=== PATIENT | female | born 1985 | race Caucasian/White ===

== ENCOUNTER 2025-04-01 15:41 | Emergency (ER) | payer MEDICAID, SELFPAY ==
[2025-04-01 15:45] VITALS: BP 155/77; PULSE 51; RESP 20; TEMP 37.1; O2SAT 99; BMI 16.9
--- NOTE | 2025-04-01 15:47 | ED_ITS ---
HPI - General Adult General Chief complaint: General Medical Stated complaint: Something weird going on with her blood? Related Data Allergies Allergy/AdvReac Type Severity Reaction Status Date / Time No Known Allergies Allergy Verified 04/01/25 15:46 [facility] Social History Social History Advance Directives: No Advance Directives Information Provided: No Physical Exam ED Vital Signs: BMI result Body Mass Index 16.9 Course Course Course Narrative: This is a rapid medical exam performed by Enmanuel Chamorro NP: Additional HPI, ROS, PE not included below will be deferred to primary provider. Patient is a 39y/o F presenting with complaint of heavy vaginal bleeding with clots. Also reports she is bleeding black. Reports abnormal bleeding from injection sites. Last used this morning. Denies chest pain or dyspnea. Plan: labs including cultures Patient left the emergency department before myself or any of the other clinicians could review or explain physical exam findings, test results, need or lack there of for additional testing, treatment options, or a treatment plan. Medical Decision Making Lab Data 04/01/25 16:44 04/01/25 16:44 Labs: Lab Results 04/01/25 Range/Units 16:44 WBC 6.4 (4.8-10.8) X10*3/uL RBC 4.88 (4.20-5.50) X10*6/uL Hgb 14.6 (12.0-16.0) g/dl Hct 44.8 (37.0-47.0) % MCV 91.8 (80.0-98.0) fL MCH 29.9 (27.0-33.0) pg MCHC 32.6 (31.0-35.0) g/dl RDW 13.2 (11.0-16.0) % Plt Count 26 L (160-400) X10*3/uL MPV 9.8 (9.4-12.3) fL Immature Gran % (Auto) 0.2 (0.0-0.4) % Neut % (Auto) 59.3 (45-73) % Lymph % (Auto) 31.6 (20-40) % [place] % (Auto) 6.7 (2-11) % Eos % (Auto) 1.6 (0-4) % Baso % (Auto) 0.6 (0-2) % Lymph # (Auto) 2.0 (1.2-4.9) X10*3/uL [place] # (Auto) 0.4 (0.1-1.2) X10*3/uL Eos # (Auto) 0.1 (0.0-0.4) X10*3/uL Baso # (Auto) 0.0 (0.0-0.2) X10*3/uL Abs Immat Gran (auto) 0.01 (0.00-0.03) X10*3/uL Absolute Neuts (auto) 3.8 (2.0-8.3) x10*3/uL Absolute Nucleated RBC 0.000 (0.0-0.012) X10*3/uL Nucleated RBC % (auto) 0.0 (0.0-0.2) /100WBC Smear Tech's Comments VERIFIED Sodium 140 (135-145) mmol/L Potassium 5.1 (3.3-5.1) mmol/L Chloride 108 (96-108) mmol/L Carbon Dioxide 20 L (22-29) mmol/L Anion Gap 17 (12-20) BUN 25 H (9-16) mg/dL Creatinine 0.78 (0.5-1.4) mg/dL Estim Creat Clear Calc 75.4 Estimated GFR > 60 Random Glucose 100 (60-115) mg/dL Lactic Acid 0.7 (0.5-2.0) mmol/L Calcium 9.6 (8.4-10.2) mg/dL Total Bilirubin 0.3 (0.0-1.0) mg/dL AST 37 H (5-31) U/L ALT 17 (0-31) U/L Alkaline Phosphatase 83 (39-117) U/L Total Protein 7.8 (6.5-8.0) g/dL Albumin 4.1 (3.5-5.0) g/dL Beta HCG, Quant < 2 mIU/mL Discharge Plan Discharge Clinical Impression: Abnormal vaginal bleeding Patient Disposition: Left W/O Completing Treatment Discharge Date/Time: 04/01/25 17:35
--- NOTE | 2025-04-01 16:56 | PC.NURSE ---
This RN alerted in triage by another pt that pt was noted to be going in bathroom with a joint in her hand, pt alerted ths RN in triage that she did have needles on her but denied having any drug paraphernalia. This RN noted pt to be walking in and out of the bathroom. Jamee made aware, belongings search to be conducted at this time. Charge nurse also made aware at this time. Pt noted to walk out of ED after search.
--- NOTE | 2025-04-01 16:59 | PC.NURSE ---
jose removed and exposed of dirty needles, removed empty heroin bags, pt noted to have clean needles of which security let pt keep at this time. Pt verbalized to joes she was going out to smoke but not leving, aware if she gets called and is not in waiting room that she would be presumed gone
[2025-04-01 17:01] LABS: Hematocrit 44.8 % (37.0-47.0); Hemoglobin 14.6 g/dl (12.0-16.0); Imm Gran Abs Auto 0.01 X10*3/uL (0.00-0.03); Imm Gran Pct Auto 0.2 % (0.0-0.4); Lymphocytes Absolute Auto 2.0 X10*3/uL (1.2-4.9); MANUAL DIFF FLAG SCAN; Mean Corpuscular HGB Conc 32.6 g/dl (31.0-35.0); Mean Corpuscular Hemoglobin 29.9 pg (27.0-33.0); Mean Corpuscular Volume 91.8 fL (80.0-98.0); NRBC Abs Auto 0.000 X10*3/uL (0.0-0.012); NRBC Pct Auto 0.0 /100WBC (0.0-0.2); PLT CLUMP 1; Red Blood Count 4.88 X10*6/uL (4.20-5.50); SCAN SMEAR FLAG 1
[2025-04-01 17:22] LABS: Alanine Aminotransferase 17 U/L (0-31); Albumin Level 4.1 g/dL (3.5-5.0); Anion Gap 17 (12-20); Aspartate Amino Transferase 37 U/L (5-31); Blood Urea Nitrogen 25 mg/dL (9-16); Calcium 9.6 mg/dL (8.4-10.2); Carbon Dioxide 20 mmol/L (22-29); Chloride 108 mmol/L (96-108); Creatinine Clr Calc Pharmacy 75.4; Estimated Glomerular Filt Rate > 60; Potassium 5.1 mmol/L (3.3-5.1); Sodium 140 mmol/L (135-145); Total Protein 7.8 g/dL (6.5-8.0)
[2025-04-01 17:43] LABS: Alkaline Phosphatase 83 U/L (39-117)
[2025-04-01 18:33] LABS: Platelet Count 26 X10*3/uL (160-400); White Blood Count 6.4 X10*3/uL (4.8-10.8)
== END 2025-04-01 17:35 | disposition left against medical advice (07) ==
PROVIDERS: Registered Nurse Emergency; Emergency Provider Emergency Medicine; PCP Family Medicine
DX: N93.9 Abnormal uterine and vaginal bleeding, unspecified (principal); Z53.21 Procedure and treatment not carried out due to patient leaving prior to being seen by health care provider
CPT/HCPCS: 36415; 80053; 83605; 84702; 85025; 87040; 99281; 99283